=== PATIENT | male | born 1995 | race Caucasian/White ===

== ENCOUNTER 2017-03-18 09:18 | Inpatient (IN) | payer OTHER ==
[~2017-03-18] VITALS: Ht 175.3 cm; Wt 75.0 kg
[2017-03-18 10:03] LABS: BASOPHIL (%) 0.2 % (0-1); EOSINOPHIL (%) 0 % (0-5); HEMATOCRIT 45.1 % (38.0-50.0); HEMOGLOBIN 16.2 G/DL (12.5-16.6); IMMATURE GRANULOCYTE (%) 0.4 % (0.0-0.7); LYMPHOCYTE (%) 11.9 % (15-42); LYMPHOCYTE COUNT 1.2 K/uL (1.0-2.8); MCH 32.4 PG (29.0-34.0); MCHC 35.9 G/DL (30.0-36.0); MCV 90.2 FL (86-99); MONOCYTE (%) 4.7 % (3-12); MONOCYTE COUNT 0.5 K/uL (0-0.8); NEUTROPHIL (%) 82.8 % (45-76); NEUTROPHIL COUNT 8.4 K/uL (1.8-6.4); PLATELET COUNT 318 K/uL (156-360); RBC DIS.WIDTH-CV 11.7 % (11.8-14.6); RBC DIS.WIDTH-SD 38.4 % (39-53); WHITE BLOOD COUNT 10.1 K/uL (4.1-10.2)
[2017-03-18 10:22] LABS: CHLORIDE 100 MEQ/L (99-109); DIRECT BILIRUBIN 0.1 mg/dL (0.0-0.3); POTASSIUM 3.5 MEQ/L (3.7-5.4); SODIUM 137 MEQ/L (136-147); TOTAL BILIRUBIN 0.4 MG/DL (0.0-1.0)
[2017-03-18 10:28] LABS: ACETAMINOPHEN (TYLENOL) < 10 MCG/ML (10-30); ALKALINE PHOSPHATASE 50 IU/L (3-129); ALT (GPT) 17 IU/L (3-49); AST (GOT) 17 IU/L (2-34); CREATININE 0.9 MG/DL (0.6-1.3); GFR ESTIMATE (CALCULATED) > 59 mL/min/ (58.99-99999); GLUCOSE 161 mg/dL (70-99); SALICYLATE < 3.0 MG/DL (15-30); SERUM ETHYL ALCOHOL < 10 mg/dL; TOTAL PROTEIN 7.8 G/DL (6.4-8.3); UREA NITROGEN (BUN) 9 mg/dL (9-23)
[2017-03-18 11:01] LABS: BILIRUBIN NEGATIVE; BLOOD NEGATIVE; COLOR YELLOW ((YELLOW)); GLUCOSE (STRIP) 150; KETONES NEGATIVE; LEUKOCYTES NEGATIVE; NITRITE NEGATIVE; PROTEIN (STRIP) NEGATIVE; SPECIFIC GRAVITY 1.024 (1.000-1.030); UROBILINOGEN 0.2 MG/DL (0.2-1.0)
[2017-03-18 11:02] LABS: APPEARANCE CLEAR ((CLEAR))
[2017-03-18 11:15] LABS: AMPHETAMINE NEGATIVE (500 ng/mL); BARBITURATES NEGATIVE (200 ng/mL); BENZODIAZEPINES NEGATIVE (150 ng/mL); BUPRENORPHINE NEGATIVE (10 ng/mL); COCAINE NEGATIVE (150 ng/mL); METHADONE NEGATIVE (200 ng/mL); METHAMPHETAMINE NEGATIVE (500 ng/mL); OPIATES (MORPHINE) NEGATIVE (100 ng/mL); OXYCODONE NEGATIVE (100 ng/mL); PHENCYCLIDINE NEGATIVE (25 ng/mL); PROPOXYPHENE NEGATIVE (300 ng/mL); THC CANNABINOIDS NEGATIVE (50 ng/mL); TRICYCLIC ANTIDEPRESSANTS NEGATIVE (300 ng/mL)
[2017-03-18 17:41] VITALS: BP 138/101
[2017-03-18] MEDS ORDERED: IBUPROFEN800 MG PO (17:42)
[2017-03-18 17:45] VITALS: BP 138/101
[2017-03-19 08:37] VITALS: BP 156/77
[2017-03-19 15:36] VITALS: BP 127/62
[2017-03-19 19:39] VITALS: BP 131/65
[2017-03-19 23:38] VITALS: BP 128/69
[2017-03-20 03:30] VITALS: BP 134/62
[2017-03-20] MEDS ORDERED: TRAZODONE HCL50 MG PO (09:20)
[2017-03-20] MEDS ORDERED: FLUOXETINE HCL20 MG PO (09:20)
== END 2017-03-20 11:16 | disposition home or self-care (01) | DRG 882 ==
LOC: EME → EDBD 09:18 → EME 09:18 → EDOF 15:56 → 1WEST 15:56 → ENRESERV 17:29 → 1WEST 03-20 11:16
PROVIDERS: Emergency Medicine
DX: F40.10 Social phobia, unspecified (principal); T43.221A Poisoning by selective serotonin reuptake inhibitors, accidental (unintentional), initial encounter; F32.9 Major depressive disorder, single episode, unspecified; G47.00 Insomnia, unspecified; F11.10 Opioid abuse, uncomplicated
CPT/HCPCS: 80048; 80076; 81003; 85025; 90837; 93005; G0480; J2405; J7030; Q0177

== ENCOUNTER 2017-04-17 11:46 | Emergency (ER) | payer BC ==
[~2017-04-17] VITALS: Ht 175.3 cm; Wt 79.8 kg
[~2017-04-17 11:46] MED LIST: FLUOXETINE HCL20 MG PO; IBUPROFEN800 MG PO; TRAZODONE HCL50 MG PO
[2017-04-17 12:58] LABS: HEMATOCRIT 42.1 % (38.0-50.0); MCH 32.9 PG (29.0-34.0); MCHC 35.6 G/DL (30.0-36.0); MCV 92.3 FL (86-99); PLATELET COUNT 270 K/uL (156-360); RBC DIS.WIDTH-CV 12.3 % (11.8-14.6); RBC DIS.WIDTH-SD 41.8 % (39-53); RED BLOOD COUNT 4.56 M/uL (4.00-5.50); WHITE BLOOD COUNT 9.8 K/uL (4.1-10.2)
[2017-04-17 13:11] LABS: ALBUMIN 4.8 g/dL (3.2-4.8); CHLORIDE 102 mEq/L (99-109); POTASSIUM 4.3 mEq/L (3.7-5.4); SODIUM 136 mEq/L (136-147)
[2017-04-17 13:13] LABS: GLUCOSE 93 mg/dL (70-99)
[2017-04-17 13:14] LABS: TOTAL PROTEIN 7.4 g/dL (6.4-8.3)
[2017-04-17 13:15] LABS: TOTAL BILIRUBIN 0.4 mg/dL (0.0-1.0)
[2017-04-17 13:17] LABS: CREATININE 0.8 mg/dL (0.6-1.3); GFR ESTIMATE (CALCULATED) > 59 mL/min/ (58.99-99999)
[2017-04-17 13:18] LABS: ALKALINE PHOSPHATASE 48 IU/L (3-129)
[2017-04-17 13:19] LABS: AST (GOT) 19 IU/L (2-34); UREA NITROGEN (BUN) 10 mg/dL (9-23)
[2017-04-17 13:20] LABS: SALICYLATE < 5.0 MG/DL (15-30)
[2017-04-17 13:21] LABS: ACETAMINOPHEN (TYLENOL) < 10 mcg/mL (10-30); ALT (GPT) 21 IU/L (3-49)
[2017-04-17 15:27] LABS: SERUM ETHYL ALCOHOL < 10 mg/dL
[2017-04-17 16:24] VITALS: BP 146/94
== END 2017-04-17 16:25 | disposition left against medical advice (07) ==
LOC: EME 11:46
PROVIDERS: Emergency Medicine
DX: F41.9 Anxiety disorder, unspecified (principal); M25.512 Pain in left shoulder; Z72.0 Tobacco use
CPT/HCPCS: 80053; 85027; 85610; 93005; G0480